=== PATIENT | female | born 1975 | race Caucasian/White ===

== ENCOUNTER 2017-07-26 16:57 | Emergency (ER) | payer OTHER ==
--- NOTE | 2017-07-26 19:02 | ER ---
Nurse's Notes [facility] Name: Debbie Forrest Age: 42 yrs Sex: Female : 1975 Arrival Date: 07/26/2017 Time: 16:59 Bed 18 Private MD: Diagnosis: Pain in left shoulder;Muscle spasm of back Presentation: 07/26 17:02 Presenting complaint: Patient states: Left arm pain for 2 weeks with no known injury. la1 Transition of care: patient was not received from another setting of care. Onset of symptoms was July 26, 2017. Initial Sepsis Screen: Does the patient meet any 2 criteria? No. Patient's initial sepsis screen is negative. Does the patient have a suspected source of infection? No. Patient's initial sepsis screen is negative. Care prior to arrival: None. 17:02 Method Of Arrival: Ambulatory la1 17:02 Acuity: ALLYN 4 la1 RN ORTHOPEDIC: 17:52 LMP N/A - Hysterectomy rb1 Historical: - Allergies: 17:03 No Known Allergies; la1 - Home Meds: 17:52 losartan 100 mg Oral tab 1 tab once daily [Active]; rb1 - PMHx: 17:03 Hypertension; la1 - PSHx: 17:52 Hysterectomy; Cholecystectomy; uterine ablation; rb1 - Immunization history:: Adult Immunizations up to date. - Social history:: Smoking status: Patient/guardian denies using tobacco. Screenin:52 Abuse screen: Denies threats or abuse. Nutritional screening: No deficits noted. rb1 Tuberculosis screening: No symptoms or risk factors identified. Fall Risk None identified. Assessment: 17:52 General: Appears uncomfortable, Behavior is calm, cooperative, Denies fever. Pain: rb1 Complains of pain in left shoulder Pain currently is 10 out of 10 on a pain scale. Pain began x 2 weeks. Neuro: Level of Consciousness is awake, alert, obeys commands, Oriented to person, place, time, situation, Data Systems Manager are equal bilaterally Cardiovascular: Capillary refill < 3 seconds is brisk in bilateral fingers. Respiratory: Airway is patent Respiratory effort is even, unlabored, Respiratory pattern is regular, symmetrical. GI: No signs and/or symptoms were reported involving the gastrointestinal system. : No signs and/or symptoms were reported regarding the genitourinary system. Derm: Skin is pink, warm \\T\\ dry. Musculoskeletal: Range of motion: limited in left shoulder pt. does not remember hurting her left shoulder, but she has had pain x 2 weeks. 18:50 Reassessment: Patient appears in no apparent distress at this time. No changes from rb1 previously documented assessment. 19:05 Reassessment: Pt. requested pain medication before being discharged. Provider notified. rb1 Liana stated, "I am more than happy to give her something before discharging her if she can find a ride home." Pt. informed about the POC for pain medication and stated, "I will call my son to come and pick me up.". 19:15 Reassessment: Discharge is pending due to HOLD on pain medication until the son arrives rb1 to transport the pt. home. 19:20 General: Appears in no apparent distress. comfortable, Behavior is calm, cooperative. ao Pain: Complains of pain in left shoulder. Neuro: Level of Consciousness is awake, alert, obeys commands, Oriented to person, place, time, situation, Moves all extremities. Speech is normal. Cardiovascular: Patient's skin is warm and dry. Respiratory: Airway is patent Respiratory effort is even, unlabored, Respiratory pattern is regular, symmetrical. GI: Abdomen is non-distended. : No signs and/or symptoms were reported regarding the genitourinary system. EENT: No signs and/or symptoms were reported regarding the EENT system. Derm: Skin is pink, warm \\T\\ dry. Musculoskeletal: Range of motion: limited in left shoulder. Vital Signs: 17:03 BP 168 / 96; Pulse 75; Resp 15; Temp 97.8; Pulse Ox 100% on R/A; Weight 95.25 kg; la1 Height 5 ft. 6 in. (167.64 cm); 18:00 BP 156 / 92; Pulse 64; Resp 17; Pulse Ox 100% on R/A; Pain 10/10; rb1 19:45 BP 146 / 96; Pulse 63; Resp 16; Pulse Ox 99% on R/A; Pain 0/10; ao 17:03 Body Mass Index 33.89 (95.25 kg, 167.64 cm) la1 ED Course: 16:59 Patient arrived in ED. as 17:03 Triage completed. la1 17:04 Arm band placed on right wrist. Patient placed in waiting room, Patient notified of la1 wait time. 17:52 Patient has correct armband on for positive identification. Bed in low position. Call rb1 light in reach. Side rails up X 1. Pulse ox on. NIBP on. 17:53 Arnie Gaines PA is PHCP. jr8 17:53 Job Diaz MD is Attending Physician. jr8 17:58 Gladys Bernal, RN is Primary Nurse. rb1 19:00 Report given to JESSICA Tay. rb1 19:58 No provider procedures requiring assistance completed. Patient did not have IV access ao during this emergency room visit. Administered Medications: :57 Drug: [place] 10 mg-325 mg 1 tabs Route: PO; ao 19:57 Follow up: Response: Medication administered at discharge. ao Outcome: 19:01 Discharge ordered by . jr8 19:58 Discharged to home ambulatory. ao 19:58 Condition: stable 19:58 Discharge instructions given to patient, Instructed on discharge instructions, follow up and referral plans. Demonstrated understanding of instructions, Prescriptions given X 3. 20:03 Patient left the ED. ao Signatures: Cyn Geiger Josh, PA PA jr8 Austyn Escalera RN RN la1 Gladys Bernal, RN RN rb1 Jasvir Kaplan RN RN ao
--- NOTE | 2017-07-26 19:03 | EDPHYS ---
Physician Documentation [facility] Name: Debbie Forrest Age: 42 yrs Sex: Female : 1975 Arrival Date: 07/26/2017 Time: 16:59 Bed 18 Private MD: ED Physician Job Diaz HPI: 07/26 19:52 This 42 yrs old Female presents to ER via Ambulatory with complaints of jr8 Shoulder Pain, Arm Pain. 19:52 The patient or guardian complains of decreased range of motion, pain. left shoulder and jr8 left trapezius. Context: resulted from an unknown reason, The patient experiences decreased range of motion, when attempts to raise arm. Onset: The symptoms/episode began/occurred gradually, 2 week(s) ago. Modifying factors: the symptoms are alleviated by nothing. The symptoms are aggravated by movement. Associated signs and symptoms: The patient has no apparent associated signs or symptoms. Severity of symptoms: At their worst the symptoms were moderate, in the emergency department the symptoms are unchanged. The patient has not experienced similar symptoms in the past. The patient has not recently seen a physician. Denies trauma to neck or shoulder . 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 - Social history:: Smoking status: Patient/guardian denies using tobacco. ROS: 19:52 Eyes: Negative for injury, pain, redness, and discharge, ENT: Negative for injury, jr8 pain, and discharge, Neck: Negative for injury, pain, and swelling, Cardiovascular: Negative for chest pain, palpitations, and edema, Respiratory: Negative for shortness of breath, cough, wheezing, and pleuritic chest pain, Abdomen/GI: Negative for abdominal pain, nausea, vomiting, diarrhea, and constipation, Back: Negative for injury and pain, Skin: Negative for injury, rash, and discoloration, Neuro: Negative for headache, weakness, numbness, tingling, and seizure. 19:52 MS/extremity: Positive for decreased range of motion, pain, tenderness, of the left trapezius and left shoulder. Exam: 19:52 Eyes: Pupils equal round and reactive to light, extra-ocular motions intact. Lids and jr8 lashes normal. Conjunctiva and sclera are non-icteric and not injected. Cornea within normal limits. Periorbital areas with no swelling, redness, or edema. ENT: Nares patent. No nasal discharge, no septal abnormalities noted. Tympanic membranes are normal and external auditory canals are clear. Oropharynx with no redness, swelling, or masses, exudates, or evidence of obstruction, uvula midline. Mucous membranes moist. Neck: Trachea midline, no thyromegaly or masses palpated, and no cervical lymphadenopathy. Supple, full range of motion without nuchal rigidity, or vertebral point tenderness. No Meningismus. Cardiovascular: Regular rate and rhythm with a normal S1 and S2. No gallops, murmurs, or rubs. Normal PMI, no JVD. No pulse deficits. Respiratory: Lungs have equal breath sounds bilaterally, clear to auscultation and percussion. No rales, rhonchi or wheezes noted. No increased work of breathing, no retractions or nasal flaring. Abdomen/GI: Soft, non-tender, with normal bowel sounds. No distension or tympany. No guarding or rebound. No evidence of tenderness throughout. Skin: Warm, dry with normal turgor. Normal color with no rashes, no lesions, and no evidence of cellulitis. Neuro: Awake and alert, GCS 15, oriented to person, place, time, and situation. Cranial nerves II-XII grossly intact. Motor strength 5/5 in all extremities. Sensory grossly intact. Cerebellar exam normal. Normal gait. 19:52 Back: pain, that is moderate, of the left trapezius and left scapular area, ROM is painful, normal spinal alignment noted, CVA tenderness, is absent, vertebral tenderness, is not appreciated. 19:52 Musculoskeletal/extremity: Extremities: grossly normal except: noted in the left shoulder: pain, ROM: full active range of motion, full passive range of motion, limited active range of motion due to pain, limited passive range of motion due to pain, Circulation is intact in all extremities. Sensation intact. Vital Signs: 17:03 BP 168 / 96; Pulse 75; Resp 15; Temp 97.8; Pulse Ox 100% on R/A; Weight 95.25 kg; la1 Height 5 ft. 6 in. (167.64 cm); 18:00 BP 156 / 92; Pulse 64; Resp 17; Pulse Ox 100% on R/A; Pain 10/10; rb1 19:45 BP 146 / 96; Pulse 63; Resp 16; Pulse Ox 99% on R/A; Pain 0/10; ao 17:03 Body Mass Index 33.89 (95.25 kg, 167.64 cm) la1 MDM: 17:53 Patient medically screened. jr8 19:00 Data reviewed: vital signs, nurses notes, and as a result, I will discharge patient. jr8 Data interpreted: Pulse oximetry: on room air is 100 %. Interpretation: normal. Counseling: I had a detailed discussion with the patient and/or guardian regarding: the historical points, exam findings, and any diagnostic results supporting the discharge/admit diagnosis, the need for outpatient follow up, a orthopedic surgeon, to return to the emergency department if symptoms worsen or persist or if there are any questions or concerns that arise at home. Administered Medications: 19:57 Drug: [place] 10 mg-325 mg 1 tabs Route: PO; ao 19:57 Follow up: Response: Medication administered at discharge. ao Disposition: 07/27 09:16 Co-signature as Attending Physician, Job Diaz MD I agree with the assessment and le plan of care. Disposition: 07/26/17 19:01 Discharged to Home. Impression: Pain in left shoulder, Muscle spasm of back. - Condition is Stable. - Discharge Instructions: Musculoskeletal Pain, Heat Therapy. - Prescriptions for Ibuprofen 800 mg Oral Tablet - take 1 tablet by ORAL route every 12 hours As needed take with food; 20 tablet. Cyclobenzaprine 10 mg Oral Tablet - take 1 tablet by ORAL route every 8 hours As needed; 30 tablet. Tramadol 50 mg Oral Tablet - take 1 tablet by ORAL route every 8 hours as needed; 12 tablet. - Medication Reconciliation Form, Thank You Letter, Antibiotic Education, Prescription Opioid Use form. - Follow up: Private Physician; When: 1 week; Reason: Recheck today's complaints, Continuance of care, Re-evaluation by your physician. - Problem is new. - Symptoms have improved. Signatures: Job Diaz MD MD cha Roszak, Josh, PA PA jr8 Austyn Escalera RN RN la1 Gladys Bernal, RN RN rb1 Jasvir Kaplan, RN RN ao
[2017-07-26] MEDS ORDERED: HYDROCODONE/APAP 10/325 TAB ONE (19:52)
[2017-07-26 20:21] VITALS: TEMP 97.8
[2017-07-26 20:23] VITALS: BP 146/96; O2SAT 99
== END 2017-07-26 20:03 | disposition home or self-care (01) ==
LOC: ER 16:57
DX: M25.512 Pain in left shoulder (principal); M62.830 Muscle spasm of back; I10 Essential (primary) hypertension
CPT/HCPCS: 99283

== ENCOUNTER 2019-09-10 14:09 | Emergency (ER) | payer OTHER ==
--- OUTSIDE RECORDS SUMMARY | 2019-09-10 14:12 | XMS REPORT | Continuity of Care Document ---
:1975 Author Organization [facility] t Address [address] [place] [address] Care Team Providers Name Role Phone ETHEL Attending Clinician Unavailable ETHEL Admitting Clinician Unavailable Payers Payer Name Policy Type Policy Number Effective Date Expiration Date S ource Problems This patient has no known problems. Allergies, Adverse Reactions, Alerts This patient has no known allergies or adverse reactions. Medications This patient has no known medications. Procedures This patient has no known procedures. Encounters Start End Encounter Admission Attending Care Care Encounter Source Date/Time Date/Time Type Type Clinicians Facility Department ID 2019-02-16 2019-02-16 Outpatient [facility] [id number] [facility] 11:18:00 17:06:00 [facility] Results This patient has no known results.
[2019-09-10] MEDS ORDERED: HYDROCODONE/APAP 10/325 TAB ONE (15:59)
--- NOTE | 2019-09-10 16:19 | RAD REPORT ---
EXAM DESCRIPTION: RAD - Foot Left 3 View - 09/10/2019 3:27 pm CLINICAL HISTORY: left toe pain, trauma COMPARISON: No comparisons FINDINGS: No fracture, dislocation or periosteal reaction. No acute or destructive bony process. Re modeling is evident in the first metatarsal from prior trauma or surgery. Degenerative changes are pr esent dorsal surface of the foot at the tarsal metatarsal articulation. Small plantar spur present. No air or foreign body in the soft tissues. IMPRESSION: No fracture or acute left foot finding.
--- NOTE | 2019-09-10 16:23 | ER ---
Nurse's Notes [facility] Name: Debbie Forrest Age: 44 yrs Sex: Female : 1975 Arrival Date: 09/10/2019 Time: 14:13 Bed 19 Private MD: Diagnosis: Pain in left toe(s);Sprain of toe Presentation: 09/09 14:27 Coronavirus screen: Proceed with normal triage. Patient denies a cough. Patient denies ss shortness of breath or difficulty breathing. Patient denies measured and/or subjective temperature greater than 100.4F prior to today's visit. Patient denies travel on a cruise ship or to a country the [facility] currently lists as an affected area. Patient denies contact with known and/or suspected case of COVID-19. Ebola Screen: Patient denies travel to an Ebola-affected area in the 21 days before illness onset. Initial Sepsis Screen: Does the patient meet any 2 criteria? No. Patient's initial sepsis screen is negative. Does the patient have a suspected source of infection? No. Patient's initial sepsis screen is negative. Risk Assessment: Do you want to hurt yourself or someone else? Patient reports no desire to harm self or others. Onset of symptoms was September 10, 2019. 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 Left foot 1st digit ss hyperextended. Pain to toe since. 14:29 Method Of Arrival: Ambulatory ss Historical: - Allergies: 14:29 No Known Allergies; ss - PMHx: 14:29 Hypertension; ss - PSHx: 14:29 Hysterectomy; Cholecystectomy; uterine ablation; left foot surgery x 3; ss - Immunization history:: Adult Immunizations up to date, Flu vaccine is not up to date. - Social history:: Smoking status: Patient reports the use of cigarette tobacco products, denies chronic smoking, but will smoke occasionally, Patient uses alcohol, only on a social basis. Patient/guardian denies using street drugs. Assessment: 14:45 Pain: Complains of pain in right first toe Pain began 1 hour ago. Neuro: Level of ah Consciousness is awake, alert, Oriented to person, place, time, situation. Cardiovascular: Capillary refill < 3 seconds Patient's skin is warm and dry. Derm: No signs and/or symptoms reported regarding the dermatologic system. Skin is intact, is healthy with good turgor. Vital Signs: 14:27 Pulse 65; Resp 18; Temp 98.1; Pulse Ox 99% ; Pain 8/10; ss 14:31 BP 130 / 90; ss ED Course: 14:13 Patient arrived in ED. fj1 14:28 Triage completed. 14:29 Arm band placed on Patient notified of wait time. 14:46 Juan Price NP is PHCP. pm1 14:46 Tristin Goldberg MD is Attending Physician. pm1 14:57 Valencia Patel, RN is Primary Nurse. 15:27 Foot Left 3 View XRAY In Process Unspecified. EDMS 16:40 No provider procedures requiring assistance completed. Patient did not have IV access ss during this emergency room visit. Administered Medications: 15:52 Drug: [place] 10 mg-325 mg 1 tabs Route: PO; 16:22 Follow up: Response: No adverse reaction Outcome: 16:22 Discharge ordered by . pm1 16:40 Discharged to home ambulatory. 16:40 Condition: good 16:40 Discharge instructions given to patient, Instructed on discharge instructions, follow up and referral plans. medication usage, Demonstrated understanding of instructions, follow-up care, medications, Prescriptions given X 1. 16:40 Patient left the ED. Signatures: Dispatcher [employer] EDTX Sweta Jc RN RN Juan Price NP STRUCTURAL METAL WORKER pm1 Joaquin Alejandra [facility] Valencia Patel RN RN
--- NOTE | 2019-09-10 16:23 | EDPHYS ---
Physician Documentation [facility] Name: Debbie Forrest Age: 44 yrs Sex: Female : 1975 Arrival Date: 09/10/2019 Time: 14:13 Bed 19 Private MD: ED Physician Tristin Goldberg HPI: 09/09 15:49 This 44 yrs old Female presents to ER via Ambulatory with complaints of Left pm1 Great Toe Injury. 15:49 The patient presents with pain, that is acute. The complaints affect the left first pm1 toe. Context: The problem was sustained at home, resulted from Slipped on tile and hyperextended her left great toe. Patient is supposed to be wearing a walking boot on that foot due to left great toe surgery from last February. Onset: The symptoms/episode began/occurred 1 hour(s) ago. Modifying factors: The symptoms are alleviated by nothing, the symptoms are aggravated by weight bearing, movement. Associated signs and symptoms: Pertinent negatives: numbness, tingling, weakness. The patient has been recently seen by a physician: podiatry on Thursday. Historical: - Allergies: 14:29 No Known Allergies; ss - PMHx: 14:29 Hypertension; ss - PSHx: 14:29 Hysterectomy; Cholecystectomy; uterine ablation; left foot surgery x 3; ss - Immunization history:: Adult Immunizations up to date, Flu vaccine is not up to date. - Social history:: Smoking status: Patient reports the use of cigarette tobacco products, denies chronic smoking, but will smoke occasionally, Patient uses alcohol, only on a social basis. Patient/guardian denies using street drugs. ROS: 15:49 MS/extremity: Positive for pain, of the left first toe. pm1 15:49 Constitutional: Negative for fever, chills, and weight loss, Cardiovascular: Negative for chest pain, palpitations, and edema, Respiratory: Negative for shortness of breath, cough, wheezing, and pleuritic chest pain, Abdomen/GI: Negative for abdominal pain, nausea, vomiting, diarrhea, and constipation, Back: Negative for injury and pain. 15:49 Skin: Negative for injury, rash, and discoloration, Neuro: Negative for headache, weakness, numbness, tingling, and seizure. Exam: 15:49 Constitutional: This is a well developed, well nourished patient who is awake, alert, pm1 and in no acute distress. Head/Face: Normocephalic, atraumatic. 15:49 Skin: Warm, dry with normal turgor. Normal color with no rashes, no lesions, and no evidence of cellulitis. 15:49 Cardiovascular: Exam negative for acute changes, Rate: normal, Rhythm: regular, Pulses: no pulse deficits are appreciated. 15:49 Respiratory: Exam negative for acute changes, respiratory distress, shortness of breath. 15:49 Musculoskeletal/extremity: Extremities: grossly normal except: noted in the left first toe: tenderness, There is no evidence of decreased ROM, swelling, Circulation is intact in all extremities. 15:49 Neuro: Exam negative for acute changes, Orientation: is normal, Mentation: is normal, Motor: is normal, moves all fours. Vital Signs: 14:27 Pulse 65; Resp 18; Temp 98.1; Pulse Ox 99% ; Pain 8/10; ss 14:31 BP 130 / 90; ss MDM: 15:09 Patient medically screened. pm1 15:13 Data reviewed: vital signs. Data interpreted: Pulse oximetry: on room air is 99 %. pm1 Interpretation: normal. 16:21 Counseling: I had a detailed discussion with the patient and/or guardian regarding: the pm1 historical points, exam findings, and any diagnostic results supporting the discharge/admit diagnosis, radiology results, the need for outpatient follow up, to return to the emergency department if symptoms worsen or persist or if there are any questions or concerns that arise at home. 16:30 ED course: DIRECTOR OF PROMOTIONS aware reviewed. pm1 16:54 ED course: Instructed the patient to wear her boot again. Patient saw her snow shoveler on pm1 Thursday . 09/09 14:49 Order name: Foot Left 3 View XRAY; Complete Time: 16:20 pm1 Administered Medications: 15:52 Drug: [place] 10 mg-325 mg 1 tabs Route: PO; 16:22 Follow up: Response: No adverse reaction Disposition: 17:16 Co-signature as Attending Physician, Tristin Goldberg MD. rn Disposition: 09/10/19 16:22 Discharged to Home. Impression: Pain in left toe(s), Sprain of toe. - Condition is Stable. - Discharge Instructions: Foot Sprain, Musculoskeletal Pain. - Prescriptions for Tylenol- Codeine #3 300-30 mg Oral Tablet - take 2 tablets by ORAL route every 6 hours As needed; 20 tablet. - Medication Reconciliation Form, Thank You Letter, Antibiotic Education, Prescription Opioid Use form. - Follow up: Emergency Department; When: As needed; Reason: Worsening of condition. Follow up: Private Physician; When: 2 - 3 days; Reason: Recheck today's complaints, Continuance of care, Re-evaluation by your physician. - Problem is new. - Symptoms have improved. Signatures: Dispatcher [employer] EDMS Tristin Goldberg MD MD rn Smirch, Shelby, RN RN ss Juan Price, NI ASSORTMENT PLANNER pm1 Valencia Patel RN RN Corrections: (The following items were deleted from the chart) 16:40 16:22 09/10/2019 16:22 Discharged to Home. Impression: Pain in left toe(s); Sprain of ss toe. Condition is Stable. Forms are Medication Reconciliation Form, Thank You Letter, Antibiotic Education, Prescription Opioid Use. Follow up: Emergency Department; When: As needed; Reason: Worsening of condition. Follow up: Private Physician; When: 2 - 3 days; Reason: Recheck today's complaints, Continuance of care, Re-evaluation by your physician. Problem is new. Symptoms have improved. pm1
[2019-09-10 16:47] VITALS: TEMP 98.1; O2SAT 99
[2019-09-10 16:48] VITALS: BP 130/90
== END 2019-09-10 16:40 | disposition home or self-care (01) ==
LOC: ER 14:09
DX: S93.502A Unspecified sprain of left great toe, initial encounter (principal); X58.XXXA Exposure to other specified factors, initial encounter; Y93.89 Activity, other specified; Y92.9 Unspecified place or not applicable; I10 Essential (primary) hypertension; Z72.0 Tobacco use
CPT/HCPCS: 99283